=== PATIENT | male | born 1935 | race Caucasian/White ===

== ENCOUNTER 2016-10-15 15:38 | Inpatient (IN) | payer OTHER, BC ==
--- NOTE | 2016-10-15 16:18 | EDPHY ---
H & P Stated Complaint: l leg cellulitis in [facility]/here visiting not better - Personal History Current Tetanus/Diphtheria Vaccine: Yes - Medical/Surgical History Hx Asthma: No Hx Chronic Respiratory Disease: No Hx Diabetes: No Hx Cardiac Disease: Yes Hx Renal Disease: No Hx Cirrhosis: No Hx Alcoholism: No Hx HIV/AIDS: No Hx Splenectomy or Spleen Trauma: No Other PMH: cardiac stents/htn/lyme disease/lymphoma - Social History Smoking Status: Never smoked Time Seen by Provider: 10/15/16 15:58 HPI/ROS: CHIEF COMPLAINT: "Cellulitis is getting worse" HISTORY OF PRESENT ILLNESS: 80-year-old male visiting from [place] states that approximately 10 days ago he received a cortisone injection to his left calcaneus. Few days later he started to develop erythema to his left lower extremity and was seen at an emergency department in [place], [facility] in [facility], had a negative ultrasound, started on doxycycline which he has taken for 7 days but notes that the left lower extremity remains edematous, tender. PRIMARY CARE PROVIDER: in [place] REVIEW OF SYSTEMS: A ten point review of systems was performed and is negative with the exception of the items mentioned in the HPI PAST MEDICAL & SURGICAL HISTORY: Lymphoma history. Cardiac stenting. Lyme disease. Guillain-Holloway. SOCIAL HISTORY: nonsmoker. Visiting from [place]. PHYSICAL EXAM (Prior to examination, patient consented to physical exam, hands were washed and my usual and customary physical exam procedures followed) 1) GENERAL: Well-developed, well-nourished, alert and oriented. Appears to be in no acute distress. 2) HEAD: Normocephalic, atraumatic 3) HEENT: Pupils equal, round, reactive to light bilaterally. Sclera anicteric. 4) NECK: Full range of motion, no meningeal signs. 5) LUNGS: Clear auscultation bilaterally, no wheezes, no rhonchi, no retractions. 6) HEART: Regular rate and rhythm, no murmur, no heave, no gallop. 7) ABDOMEN: No guarding, no rebound, no focal tenderness, negative McBurney's, negative Jones's, negative Rovsing's, negative peritoneal sign, 8) MUSCULOSKELETAL: left lower extremity: Asymmetrical edema. Erythema, induration, tenderness and increased warmth left calf and pretibial region with 2+ pitting edema. DP PT pulses are present and brisk. Compartments are soft. Dorsiflexion plantar flexion do not elicit pain. No inguinal adenopathy. 9) BACK: No CVA tenderness. 10) SKIN: No rash, no petechiae. 11) Psychiatric: Patient is oriented X 3, there is no agitation. DIFFERENTIAL DIAGNOSIS: no particular include but limited to necrotizing fasciitis, cellulitis, DVT (Jaylan,Ruben Vanessa) Constitutional: Initial Vital Signs Temperature (C) 36.8 C 10/15/16 15:52 Heart Rate 79 10/15/16 15:52 Respiratory Rate 19 10/15/16 15:52 Blood Pressure 138/62 H 10/15/16 15:52 O2 Sat (%) 96 10/15/16 15:52 O2 Delivery Mode Room Air Allergies/Adverse Reactions: lorazepam [From Ativan] Allergy (Intermediate, Verified 10/16/16 01:42) Hallucinations Home Medications: Medication Instructions Recorded Aspirin EC [Aspirin EC 81 mg (*)] 81 mg PO HS 10/15/16 Finasteride [Proscar 5 MG (*)] 5 mg PO DAILY 10/15/16 Latanoprost 0.005% [Xalatan 0.005% 1 drops EACHEYE HS 10/15/16 (*)] Metoprolol Tartrate [Lopressor 50 25 mg PO BID 10/15/16 mg (*)] Pramipexole Di-HCl [Mirapex] 0.5 mg PO HS 10/15/16 Tamsulosin HCl [Flomax 0.4 MG (*)] 0.4 mg PO DAILY 10/15/16 Timolol 0.5% [TIMOPTIC 0.5% (*)] 1 drops EACHEYE DAILY 10/15/16 Acetaminophen [Tylenol 325mg (*)] 650 mg PO Q4HRS PRN #0 tab 10/16/16 Cephalexin [Keflex (*)] 500 mg PO TID #21 cap 10/16/16 Ibuprofen [Motrin (*)] 400 mg PO Q6HRS tab 10/16/16 Medical Decision Making ED Course/Re-evaluation: 5:38 p.m.: Re-evaluation with serial exams. Seen and evaluated by Dr. Joshua Gutierrez in the ER as well. Negative DVT study. Patient has failed outpatient antibiotics with oral doxycycline. He remains with erythema, soft tissue swelling, is visiting from out of town with no local provider. We recommended admission for IV antibiotics. Patient is agreeable with this. 5:46 p.m.: Phone consultation Dr. Mendez who will admit patient (Ruben Tian ) - Data Points Laboratory Results: Laboratory Results 10/15/16 16:25 10/15/16 16:25 Medications Given: Discontinued Medications Aspirin Buffered (Aspirin Ec) 81 mg PO HS [facility] Stop: 04/13/17 20:59 Last Admin: 10/15/16 21:25 Dose: 81 mg Enoxaparin Sodium (Lovenox) 40 mg SC DAILY YASH Stop: 04/14/17 08:59 Last Admin: 10/16/16 09:02 Dose: 40 mg Finasteride (Proscar) 5 mg PO DAILY YASH Stop: 04/14/17 08:59 Last Admin: 10/16/16 09:04 Dose: 5 mg Cefazolin Sodium 1 gm/ (Dextrose) 100 mls @ 200 mls/hr IV Q8H [facility] PRN Reason: Protocol Stop: 11/14/16 17:47 Last Admin: 10/15/16 18:13 Dose: 100 mls Sodium Chloride (Ns) 1,000 mls @ 3,000 mls/hr IV ONCE ONE Stop: 10/15/16 18:05 Last Admin: 10/15/16 18:14 Dose: 1,000 mls Cefazolin Sodium/Dextrose (Ancef 1 Gm (Premix)) 50 mls @ 200 mls/hr IV Q8H YASH Stop: 11/15/16 01:59 Last Admin: 10/16/16 09:04 Dose: 50 mls Ibuprofen (Motrin) 400 mg PO Q6HRS YASH Stop: 04/13/17 19:51 Last Admin: 10/16/16 06:19 Dose: Not Given Latanoprost (Xalatan 0.005%) 1 drops EACHEYE HS [facility] Stop: 04/13/17 20:59 Last Admin: 10/15/16 21:26 Dose: 1 drop Metoprolol Tartrate (Lopressor) 25 mg PO BID YASH Stop: 04/13/17 20:59 Last Admin: 10/16/16 09:04 Dose: 25 mg Pramipexole Dihydrochloride (Mirapex) 0.5 mg PO HS YASH Stop: 04/13/17 20:59 Last Admin: 10/15/16 21:26 Dose: 0.5 mg Tamsulosin HCl (Flomax) 0.4 mg PO DAILY YASH Stop: 04/14/17 08:59 Last Admin: 10/16/16 09:04 Dose: 0.4 mg Timolol Maleate (Timoptic 0.5%) 1 drops EACHEYE DAILY YASH Stop: 04/14/17 08:59 Last Admin: 10/16/16 10:31 Dose: Not Given Departure - Departure Disposition: [facility] Clinical Impression: Left leg cellulitis Condition: Good
[2016-10-15 16:31] LABS: ADD DIFF? YES; ADD MORPH? NO; ADD SCAN? NO; FRAGMENT RBC FLAG 0 (0-99); HEMOGLOBIN 10.1 g/dL (13.7-17.5); LEFT SHIFT FLG 20 (0-99); LIPEMIA HEMOLYSIS FLAG 80 (0-99)
[2016-10-15 16:34] LABS: ATYPICAL LYMPHOCYTE FLAG 10 (0-99); HEMATOCRIT 30.9 % (40.0-51.0); MEAN CELL HEMOGLOBIN 30.6 pg (27.9-34.1); MEAN CELL HEMOGLOBIN CONCENTR. 32.7 g/dL (32.4-36.7); MEAN CELL VOLUME 93.6 fL (81.5-99.8); MEAN PLATELET VOLUME 10.4 fL (8.7-11.7); PLATELET CLUMPS FLAG 30 (0-99); PLATELET COUNT 223 10^3/uL (150-400); RED CELL DISTRIBUTION WIDTH 14.5 % (11.5-15.2)
[2016-10-15 16:44] LABS: ANION GAP 10 mEq/L (8-16); CALCIUM 9.3 mg/dL (8.5-10.4); CARBON DIOXIDE 22 mEq/l (22-31); CHLORIDE 107 mEq/L (97-110); CREATININE 0.8 mg/dL (0.7-1.3); GLOMERULAR FILTRATION RATE > 60; GLUCOSE 102 mg/dL (70-100); POTASSIUM 4.7 mEq/L (3.5-5.2); SODIUM 139 mEq/L (134-144)
[2016-10-15 17:08] LABS: PLATELET ESTIMATE ADEQUATE (ADEQ)
[2016-10-15] MEDS ORDERED: ONDANSETRON DISINTEGRATING 4 MG TAB PO PRN (17:46)
[2016-10-15] MEDS ORDERED: NS 1,000 ML IV ONE (17:46)
[2016-10-15] MEDS ORDERED: ONDANSETRON 4 MG/2 ML VIAL IVP PRN (17:46)
[2016-10-15] MEDS ORDERED: ACETAMINOPHEN 325 MG TAB PO PRN (17:46)
[2016-10-15] MEDS ORDERED: CEFAZOLIN 1 GM/DEXTROSE/50 ML BAG IV ONE (18:07)
--- NOTE | 2016-10-15 20:20 | GHP ---
[f rep st] HISTORY AND PHYSICAL DATE OF ADMISSION: 10/15/2016 CHIEF COMPLAINT: Left leg pain. 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 Patient is visiting from [place] for the holiday weekend and not ed persistent pain, persistent swelling, erythema, and warmth to his left lower extremity as he was concluding a week-long course of doxycycline therefore presented presuming that additional treatment would be required. The patient notes pain particularly when touching his leg, cannot endorse that the swelling is markedly worse, it simply has not improved. Reports to me that his erythema is impr tamar since his dosing of antibiotics in the emergency department. Denies any subjective fevers or c hills. Denies any nausea, vomiting, abdominal discomfort, lightheadedness, palpitations, chest pain , shortness of breath, dysuria, changes in his bowel habits. He does have pain of his left lower ex tremity when he walks as well as when he touches it and notes persistent swelling. Has joint deform ity of the lower extremity since his Guillain-Ellisburg and his neuropathic injury. He does have new or thotics to assist with that. He walks with a cane. PAST MEDICAL HISTORY: 1. Lyme disease with Guillain-Ellisburg syndrome. Required months of rehabilitation to learn to walk a gain. 2. Hypertension. 3. Remote history of lymphoma. 4. Restless legs syndrome. 5. BPH. 6. Glaucoma. SOCIAL HISTORY: Negative for tobacco, 1 drink a night. No illicit drugs or marijuana. ADVANCED DIRECTIVES: Patient is full cor, full tube. His daughter would be his medical decision caleb shipley. REVIEW OF SYSTEMS: A 10-point review of systems is negative with the exception of that reported in the HPI. PHYSICAL EXAMINATION: VITAL SIGNS: Blood pressure is 139/99, heart rate 73, respiratory rate 16, 9 7% on room air, 36.6. GENERAL: This is a very pleasant, elderly male, sitting up in bed in no acut e distress. HEENT: Notable for moist mucous membranes. Eye exam is negative for any icterus. CAR DIAC: Patient is regular rate and rhythm. PULMONARY: Clear to auscultation bilaterally. GASTROIN TESTINAL: Positive bowel sounds. ABDOMEN: Soft and nontender in all 4 quadrants. MUSCULOSKELETAL : There is notable swelling of the left lower extremity up to the level of the knee. There is eryt angelina which is worse at the calf, however, most prominent in the medial aspect of the lower extremity from the ankle to the knee. It is warm to the touch and tender to the touch. SKIN: No other rash es are noted. NEUROLOGIC: He is alert and oriented x3. PSYCHIATRIC: He is pleasant and cooperati ve on interview and examination. DATA: White count 8.6, hematocrit 30.9, platelets of 223, creatinine 0.8, sodium 139. Ultrasound o f the lower extremity, which I personally reviewed and interpreted, shows no DVT. Telemetry which I personally reviewed and interpreted, looked like sinus rhythm. ASSESSMENT AND PLAN: This is an 80-year-old male, presenting with cellulitis of the left lower extr emity. 1. Acute cellulitis. Patient has not responded to the oral doxycycline. There is no purulent drai nage or abscesses involved. Will transition patient to IV cefazolin overnight. With the warmth, er ythema, and tenderness will treat with oral ibuprofen; creatinine is normal, patient can tolerate, a nd follow his clinical progress. He is anxious to be discharged tomorrow if possible due to the 16 of October holiday weekend. Can follow his clinical progress overnight on IV antibiotics. 2. Hypertension. Will continue his home medications without change. 3. Restless leg. Will continue his home medications without change. 4. Prophylaxis with Lovenox. 5. Diet, regular. 6. Disposition. I expect greater than 2 midnights as the patient is elderly with cellulitis that h as not responded to additional therapy, suspect he will require 2 days of IV antibiotics before impr oving enough to be dischargeable. I discussed the case with the emergency room physician. Patient will be triaged to the medical-surgical floor for care. /[id number]/MODL
[2016-10-15] MEDS ORDERED: ASPIRIN EC 81 MG TAB PO SCH (21:00)
[2016-10-15] MEDS ORDERED: LATANOPROST 0.005% 2.5 ML OPHT DROPS EACHEYE SCH (21:00)
[2016-10-15] MEDS ORDERED: PRAMIPEXOLE 1 MG TAB PO SCH (21:00)
[2016-10-15] MEDS: METOPROLOL TARTRATE 25 MG TAB PO SCH (21:25)
[2016-10-15] MEDS: IBUPROFEN 200 MG TAB PO SCH (21:26)
[2016-10-16] MEDS: IBUPROFEN 200 MG TAB PO SCH ×2 (01:53→06:19)
[2016-10-16 05:00] LABS: ADD DIFF? YES; ADD MORPH? NO; ADD SCAN? NO; ATYPICAL LYMPHOCYTE FLAG 10 (0-99); FRAGMENT RBC FLAG 0 (0-99); HEMOGLOBIN 8.7 g/dL (13.7-17.5); LEFT SHIFT FLG 20 (0-99); LIPEMIA HEMOLYSIS FLAG 80 (0-99); MEAN CELL HEMOGLOBIN 30.3 pg (27.9-34.1); MEAN CELL HEMOGLOBIN CONCENTR. 32.2 g/dL (32.4-36.7); MEAN CELL VOLUME 94.1 fL (81.5-99.8); MEAN PLATELET VOLUME 10.7 fL (8.7-11.7); PLATELET CLUMPS FLAG 0 (0-99); PLATELET COUNT 191 10^3/uL (150-400); RED BLOOD CELL COUNT 2.87 10^6/uL (4.40-6.38); RED CELL DISTRIBUTION WIDTH 14.7 % (11.5-15.2)
[2016-10-16 05:47] LABS: ANION GAP 7 mEq/L (8-16); CALCIUM 8.8 mg/dL (8.5-10.4); CARBON DIOXIDE 23 mEq/l (22-31); CHLORIDE 109 mEq/L (97-110); CREATININE 0.8 mg/dL (0.7-1.3); GLOMERULAR FILTRATION RATE > 60; GLUCOSE 89 mg/dL (70-100); POTASSIUM 4.7 mEq/L (3.5-5.2); SODIUM 139 mEq/L (134-144)
[2016-10-16 05:48] LABS: PLATELET ESTIMATE ADEQUATE (ADEQ); POLYCHROMASIA 2+
[2016-10-16 07:33] VITALS: BP 160/73; PULSE 68; RESP 16; TEMP 98.1; O2SAT 96
[2016-10-16] MEDS ORDERED: TIMOLOL 0.5% 15 ML OPHT.BTL EACHEYE SCH (09:00)
[2016-10-16] MEDS ORDERED: FINASTERIDE 5 MG TAB PO SCH (09:00)
[2016-10-16] MEDS ORDERED: TAMSULOSIN HCL 0.4 MG CAP PO SCH (09:00)
[2016-10-16] MEDS ORDERED: ENOXAPARIN 40 MG/0.4 ML SYR SC SCH (09:00)
[2016-10-16] MEDS: METOPROLOL TARTRATE 25 MG TAB PO SCH (09:04)
--- NOTE | 2016-10-16 13:07 | GDS ---
[f rep st] DISCHARGE SUMMARY ADDENDUM TO PREVIOUSLY DICTATED REPORT The patient had an extremely prompt response to treatment with IV antibiotics with complete resolution of his erythema and marked improvement in his edema within 12 hours of his treatment course. The patient was felt to be safe for disposition and discharged sooner than expected on oral antibiotics, to follow outpatient. /[id number] Dictated By: Meghan Mendez MD [id number] [facility] ORIGINAL REPORT DISCHARGE DIAGNOSES: Left lower extremity cellulitis. PHYSICAL EXAM: GENERAL: The patient is alert. VITAL SIGNS: Afebrile at 36.7 , pulse 68, respiratory rate 16, blood pressure is 160/73, saturating 96% on room air. I have seen and evaluated the patient on day of discharge. HOSPITAL COURSE: The patient is an 80-year-old male who presented to the emergency room with complaints of left lower extremity pain. He was evaluated and diagnosed with: 1. Acute cellulitis. During this hospitalization, he was treated with IV cefazolin. He has responded well. He has no further erythema or warmth on that left lower extremity. He will be transitioned to Keflex to continue course of antibiotic therapy in the outpatient setting. Followup will be with his primary care physician. 2. Hypertension. His home medications have been continued, and have not been adjusted during this hospitalization. It has been recommended he follow up with his primary care physician. DISPOSITION: The patient will be discharged home independently. There are no pending studies. Followup will be with his primary care provider, Dr. Freeman Esparza. I have discussed the patient's disposition with Dr. Hess. DISCHARGE MEDICATIONS: Please refer to EMR form. Noted, the patient has been provided a prescription for Keflex, and has had his doxycycline discontinued at the time of disposition. /[id number]/MODL MTDD
== END 2016-10-16 11:10 | disposition home or self-care (01) | DRG 603 ==
LOC: OBSVTOIN 17:46 → F3E 18:23
PROVIDERS: ADMIT Hospitalist; ATTEND Hospitalist
DX: L03.116 Cellulitis of left lower limb (principal); G61.0 Guillain-Barre syndrome; I10 Essential (primary) hypertension; G25.81 Restless legs syndrome
CPT/HCPCS: J0690; J1650

== ENCOUNTER 2017-03-04 23:38 | Emergency (ER) | payer OTHER, BC ==
[2017-03-04 23:49] VITALS: RESP 16
--- NOTE | 2017-03-05 00:07 | EDPHY ---
H & P Time Seen by Provider: 03/04/17 23:58 HPI/ROS: CHIEF COMPLAINT: "I think I broke my finger " HISTORY OF PRESENT ILLNESS: 81-year-old male arrives via private vehicle complaining of acute left 4th digit pain. He is visiting, while he was at the airport in [place] earlier today going through security he felt immediate pain to his left 4th digit when he was pulling up his pants. He noted continued swelling on the airplane ride in came directly to the hospital. Reproducible pain with range of motion. Intact skin. PHYSICAL EXAM (Prior to examination, patient consented to physical exam, hands were washed and my usual and customary physical exam procedures followed) 1) GENERAL: Well-developed, well-nourished, alert and oriented. Appears to be in no acute distress. 2) HEAD: Normocephalic 3) HEENT: sclera anicteric 4) LUNGS: Breathing comfortably. 5) SKIN: intact. 6) MUSCULOSKELETAL: tender to palpation left 4th digit proximal aspect of proximal phalanx. No deformity no angulation. Normal cascading of digit. Flexor extensor function grossly intact at the MCP, PIP, D IP. Ecchymosis noted to the hand 7) NEUROLOGIC: Full sensation. Smoking Status: Never smoked Constitutional: Initial Vital Signs Temperature (C) 36.5 C 03/04/17 23:38 Heart Rate 72 03/04/17 23:38 Respiratory Rate 16 03/04/17 23:38 Blood Pressure 147/65 H 03/04/17 23:38 O2 Sat (%) 95 03/04/17 23:38 O2 Delivery Mode Room Air Allergies/Adverse Reactions: lorazepam [From Ativan] Allergy (Intermediate, Verified 10/16/16 01:42) Hallucinations Home Medications: Medication Instructions Recorded Aspirin EC [Aspirin EC 81 mg (*)] 81 mg PO HS 10/15/16 Finasteride [Proscar 5 MG (*)] 5 mg PO DAILY 10/15/16 Latanoprost 0.005% [Xalatan 0.005% 1 drops EACHEYE HS 10/15/16 (*)] Metoprolol Tartrate [Lopressor 50 25 mg PO BID 10/15/16 mg (*)] Pramipexole Di-HCl [Mirapex] 0.5 mg PO HS 10/15/16 Tamsulosin HCl [Flomax 0.4 MG (*)] 0.4 mg PO DAILY 10/15/16 Timolol 0.5% [TIMOPTIC 0.5% (*)] 1 drops EACHEYE DAILY 10/15/16 Acetaminophen [Tylenol 325mg (*)] 650 mg PO Q4HRS PRN #0 tab 10/16/16 Cephalexin [Keflex (*)] 500 mg PO TID #21 cap 10/16/16 Ibuprofen [Motrin (*)] 400 mg PO Q6HRS tab 10/16/16 MDM/Departure - MDM Procedures: Procedure: Splint And Ortho Glass ulnar gutter splint was applied by ER tool maintenance technician. After application of the splint I returned and re-examined the patient. The splint was adequately immobilizing the joint and distal to the splint the patient's circulation and sensation were intact. Patient shows no signs of compartment syndrome. Was given orthopedic precautions. Medications Given: Discontinued Medications Ibuprofen (Motrin) 600 mg PO EDNOW ONE Stop: 03/05/17 00:18 Last Admin: 03/05/17 00:18 Dose: 600 mg ED Course/Re-evaluation: Care of patient under supervision of secondary supervising physician Dr Gutierrez who independently evaluated patient. Patient has been informed that flexor extensor function is not fully ruled out although there are no gross deficits on exam. I recommended follow up with Hand surgery. He is in [place] for the . He has been given local hand surgeon however he may elect to follow up with a hand surgeon in [place], his hometown. - Depart Disposition: Home, Routine, Self-Care Clinical Impression: Finger fracture, left Qualifiers: Encounter type: initial encounter Finger: ring finger Fracture type: closed Phalanx: proximal Fracture alignment: displaced Qualified Code(s): S62.615A - Displaced fracture of proximal phalanx of left ring finger, initial encounter for closed fracture Condition: Good Instructions: Finger Fracture (ED) Additional Instructions: Return to the ER immediately if you experience discoloration, have worsening pain, numbness, tingling, or any other symptoms that concern you. If you received x-rays in the emergency department today, be advised, that ligamentous , tendon, muscular, and other non-bony injury cannot be fully ruled out. Try to keep your affected extremity elevated above the level of your chest, and keep cold packs on the affected area, for the next 48 hours. Referrals: Casandra Hidalgo MD [Medical Doctor] - 5-7 days, call for appt. (Dr Hidalgo is a local hand surgeon. However, you may followup with a hand surgeon in [place] as well. take you CD with you. )
[2017-03-05] MEDS ORDERED: IBUPROFEN 600 MG TAB PO ONE ×2 (00:13→00:17)
[2017-03-05 00:50] VITALS: BP 131/59; PULSE 71; TEMP 98.2; O2SAT 92
== END 2017-03-05 00:49 | disposition home or self-care (01) ==
DX: S62.615A Displaced fracture of proximal phalanx of left ring finger, initial encounter for closed fracture (principal); Z79.82 Long term (current) use of aspirin; X58.XXXA Exposure to other specified factors, initial encounter; Y92.520 Airport as the place of occurrence of the external cause